=== PATIENT | male | born 1950 ===

== ENCOUNTER 2016-08-22 10:35 | Day surgery (SDC) | payer MEDICARE ==
[2016-08-15 07:17] VITALS: BMI 38.4
[2016-08-22 11:48] LABS: HEMATOCRIT 38.8 % (42.0-52.0); MEAN CELL VOLUME 81.7 fL (80.0-105.0); MEAN CORPUSCULAR HEMOGLOBIN 29.3 pg (25.0-35.0); MEAN CORPUSCULAR HGB CONC 35.8 g/dl (31.0-37.0); MEAN PLATELET VOLUME 10.7 fl (7.0-11.0); RED CELL DISTRIBUTION WIDTH 12.9 % (11.5-14.5); WHITE BLOOD COUNT 7.7 10^3/ul (4.5-11.0)
[2016-08-22] MEDS ORDERED: Iodixanol 320 mg/ml 150 ml Bottle IV ONE (12:04)
[2016-08-22] MEDS ORDERED: Lidocaine 2% Inj (20ml) ONE (12:04)
[2016-08-22 12:05] LABS: INR 0.99 (0.93-1.08); PARTIAL THROMBOPLASTIN TIME 28.7 Seconds (23.7-30.8)
[2016-08-22 12:09] LABS: BLOOD UREA NITROGEN 16 mg/dL (7-21); CALCIUM 9.5 mg/dL (8.4-10.5); CARBON DIOXIDE 26 mmol/L (21-33); CHLORIDE 102 mmol/L (98-107); CHOLESTEROL 161 mg/dL (130-200); GFR AFRICAN-AMERICAN > 60; GLUCOSE,RANDOM 97 mg/dL (70-110); POTASSIUM 3.9 mmol/L (3.6-5.0); SODIUM 138 mmol/L (132-148)
[2016-08-22] MEDS ORDERED: Midazolam 2 MG/2 ML VIAL ONE (12:19)
[2016-08-22] MEDS ORDERED: Sodium Chloride 0.45% 1,000 ML IV SCH (13:00)
[2016-08-22 13:23] VITALS: TEMP 98.3
[2016-08-22 14:40] VITALS: PULSE 63
[2016-08-22 14:50] VITALS: BP 92/62; RESP 18; O2SAT 96
--- NOTE | 2016-08-28 09:04 | CARD ---
APPROVED REPORT Procedure(s) performed: Left Heart Catheterization Complete Heart Catheterization Left Ventriculogram HISTORY 60%. (EF Method: RADIONUCLIDE), tobacco history() : The patient is a former smoker , hypertension , dyslipidemia . INDICATION The indication(s) include : positive stress test, chest pain. CASE TECHNIQUE The patient was brought electively to the Cardiac Catheterization Laboratory in a fasting state and was prepped and draped in a sterile manner. The was infiltrated with 2% Lidocaine subcutaneous without difficulty. Coronary angiography was performed using coronary diagnostic catheters. The left coronary system was accessed and visualized with a Diagnostic catheter. The right coronary system was accessed and visualized with a Diagnostic catheter. The left ventricle was accessed and visualized with a Diagnostic catheter. Left ventricular/Aortic Valve gradient assessed on pullback. Left ventriculogram was performed in WOLOF projection. Closure device was deployed with a 6 Fr / 7 Fr MynxGrip without any complications. Vessel Analysis The patient's coronary anatomy is right dominant. The left main coronary artery is a medium size vessel without stenosis. The left main bifurcates to the left anterior descending and circumflex. The left anterior descending artery is a medium size vessel . There is a 50% stenosis in the distal segment. The first diagonal branch is a small size vessel . There is a 50% stenosis in the mid segment. The circumflex artery is a large size vessel . There is a 20% stenosis in the mid segment. The right coronary artery is a large size vessel . There is a 30% stenosis in the mid segment. Left Ventricle The left ventricle is normal in size with normal contractility. The left ventricular ejection fraction is estimated to be 60%. Conclusion Non crtical CAD. Small vessel CAD. Normal left ventricular function. Recommendations Aggressive Medical Therapy Medical Therapy
== END 2016-08-22 16:30 | disposition home or self-care (01) ==
LOC: CATH 10:35
PROVIDERS: ATTEND Internal Medicine Cardiovascular Disease
DX: I25.119 Atherosclerotic heart disease of native coronary artery with unspecified angina pectoris (principal); I10 Essential (primary) hypertension
CPT/HCPCS: 36415; 80048; 80061; 85027; 85610; 85730; 86850; 86900; 93458; 99152; C1713; C1760; C1887 ×2; C2629; J1644; J2250; J3010; J7030; J7040